=== PATIENT | female | born 1975 | race Caucasian/White ===

== ENCOUNTER 2016-07-23 12:22 | Day surgery (SDC) | payer OTHER ==
--- NOTE | ~2016-07-23 | OP ---
Record Of Operation [facility] [address] [place]. [address] NAME: MERVIN MCINTYRE : 73 STATUS : [facility]#: [id number] AGE: 41 ADM/REG DATE : 07/23/16 MR#: [id number] REPORT SERV DATE: 07/24/16 DICTATED BY: CY BECKER DATE: 07/23/16 REPORT STATUS : Draft TRANSCRIBED BY: TRACY DATE: 07/23/16 DATE OF PROCEDURE: PREPROCEDURE DIAGNOSIS: Fecal incontinence. POSTPROCEDURE DIAGNOSIS: Fecal incontinence. PROCEDURE: InterStim Percutaneous nerve stimulator. INDICATIONS: Gas, liquid, and solid stool. DESCRIPTION OF PROCEDURE: The patient was properly identified, placed in the prone position per OR protocol. General anesthesia was administered. Pillows were placed under the lower abdomen to flatten the sacrum and under the shins to allow the toes to dangle freely. The grounding pad with red lead was attached to the patient's heel on the patient's right side. The patient was prepped and draped in the usual sterile fashion using Hibiclens and ChloraPrep solution. The C-arm was draped and moved into the AP position to provide fluoroscopic mapping of the sacral region which included marking out of the midline of the sacrum, SI joints, sciatic notches, medial foraminal borders, and the sacral foramina. The C-arm was moved into the lateral position to image the sacrum. Sacral promontory to the coccyx. Local injection of a 1:1 mixture of 1% lidocaine and 0.25% Marcaine with epinephrine was administered. A 3.5 cm foramen needle was introduced approximately 2 cm above the sciatic notch and 2 cm lateral to the sacral midline filling for the foraminal margins until the S3 foramen was identified and penetrated on the right side. The depth of the needle was confirmed and adjusted fluoroscopically. Proper needle position was confirmed by a direct observation of lifting of the perineum or Palomo, and observation of plantar flexion of the great using the external test stimulator. This was also tried on the patient's right side. The best result was actually on the patient's left, so the foramen needle stylet was removed and a directional wire guide was placed confirmed fluoroscopically with the bead at the anterior plane of the sacral bone. The foramen needle was removed. An incision was made peripherally to the directional guidewire through the fascial layer. The lead introducer sheath with dilator was placed over the directional guidewire and directed into the foramen ensuring the radiopaque marker of the lead introducer, was not extended beyond the anterior edge of the sacrum. The dilator was unlocked and removed along with the directional guidewire. The lead was then placed through the introducer sheath past the first white marker, but not past the second. The position was checked fluoroscopically. The lead was then further introduced until three electrodes were visible below the sacrum. Each electrode was tested for location by and visualization of the Palomo and plantar flexion of the great toe. After satisfactory positioning was confirmed, the introducer sheath was retracted with the wire under continuous fluoro deploying the lead tines into the presacral tissue. A further incision was made into the subcu tissue posterior to the iliac crest and lateral to the sacrum. Blunt dissection was continued until the gluteal fascia was identified and hemostasis was achieved. A tunneling tool with straw was placed from the lead exit site subcutaneously to the incised pocket site. The tunneling tool was removed and the lead was fed through the straw and pulled out the pocket site. The lead was cleansed of bodily fluids, dried and a protective boot was placed over the lead. The lead Record Of [place] [id number] [facility] [place]. [address] NAME: MERVIN MCINTYRE : 73 STATUS : [facility] PAT#: [id number] AGE: 41 ADM/REG DATE : 07/23/16 MR#: [id number] REPORT SERV DATE: 07/24/16 DICTATED BY: CY BECKER DATE: 07/23/16 REPORT STATUS : Draft TRANSCRIBED BY: TRACY DATE: 07/23/16 was inserted into the temporary percutaneous extension and the metal bands were aligned. The four set screws were tightened with the hex wrench until two clicks were heard. The boot was pushed over the connection. Prolene ties were used to secure on the grooves on either side of the connection. A tunnel was made subcutaneously and exited to a puncture site above the ipsilateral buttock. The percutaneous extension was placed through the straw and exposed wand connected to the twist lock araujo cable by the Greatist. The wounds were irrigated with sterile water and antibiotic solution, closed with interrupted 3-0 Vicryl sutures, 4-0 Monocryl running subcu. Counts were correct. Mastisol, Steri-Strips, Telfa, and a Biopatch were placed over the incisions followed by Tegaderm. She tolerated the procedure well and her program will be set in recovery. The patient was transferred to PACU in satisfactory condition. OLIVA/TRACY Cy Becker M.D. / [id number] CC: Nick Patiño MD
[~2016-07-23 12:22] MED LIST: CLARIT10 PO; CYANO1000T PO; EFFEX37.5 PO; EXCEDRIN EXTRA1 EACH PO; LAMICTAL10 PO; MYCOSCROI TOP; NYSTATPOW TOP; PR25 PO; REQUIP2 PO; XANAX1 MG PO
== END 2016-07-23 21:34 | disposition home or self-care (01) ==
LOC: SDC 12:22
PROVIDERS: Surgery
PROC: BR1 Imaging, Axial Skeleton, Except Skull and Facial Bones, Fluoroscopy (ICD-10-PCS; 2016-07-23)
PROC: 01HY3MZ Insertion of Neurostimulator Lead into Peripheral Nerve, Percutaneous Approach (ICD-10-PCS; principal; 2016-07-23 15:15)
DX: R15.9 Full incontinence of feces (principal); G40.909 Epilepsy, unspecified, not intractable, without status epilepticus; F41.0 Panic disorder [episodic paroxysmal anxiety]; F41.9 Anxiety disorder, unspecified; F17.200 Nicotine dependence, unspecified, uncomplicated; Z93.2 Ileostomy status; Z90.710 Acquired absence of both cervix and uterus; Z98.890 Other specified postprocedural states; Z88.0 Allergy status to penicillin; Z88.5 Allergy status to narcotic agent; Z91.040 Latex allergy status; Z79.899 Other long term (current) drug therapy
CPT/HCPCS: 76000; 80048; 85014; 85018; A9270-GY; C1778; J0330; J1885; J2250; J2270; J2405; J2550; J2795; J3010; J3370

== ENCOUNTER 2016-07-30 04:45 | Day surgery (SDC) | payer OTHER ==
--- NOTE | ~2016-07-30 | OP ---
Record Of Operation [facility] [address] [place]. [address] NAME: MERVIN MCINTYRE : 73 STATUS : [facility]#: [id number] AGE: 41 ADM/REG DATE : 07/30/16 MR#: [id number] REPORT SERV DATE: 07/30/16 DICTATED BY: CY BECKER DATE: 07/30/16 REPORT STATUS : Draft TRANSCRIBED BY: TRACY DATE: 07/30/16 DATE OF PROCEDURE: 07/30/2016 PREPROCEDURE DIAGNOSIS: Undesired sacral nerve stimulator. POSTPROCEDURE DIAGNOSIS: Undesired sacral nerve stimulator. PROCEDURE: Removal of stage I sacral nerve stimulation test. DESCRIPTION OF PROCEDURE: The patient was taken to the operating room and positioned in the right lateral position. The dressings were removed, and the patient was prepped and draped in the usual sterile fashion. The 5 cm incision was opened after injection of local anesthetic, where the boot was located. The two stay sutures were cut from the boot, the wire was cut, and the external portion was withdrawn by the circulating nurse since it was attached to a hemostat under the drapes. Then, the midline incision was opened, palpating the wire which was grasped with a hemostat, it was held with constant pressure, easily it came out, there was no resistance and it was withdrawn. Wounds were cleaned and dried, closed with 3-0 Vicryl subcu, followed by 4-0 Monocryl subcuticular. Benzoin, Steri-Strips, two regular Band-Aids, Telfa, and an Airstrip on the 5 cm incision. She tolerated the procedure well. OLIVA/TRACY Cy Becker M.D. / [id number] CC: Nick Patiño MD
== END 2016-07-30 08:45 | disposition home or self-care (01) ==
LOC: SDC 04:45
PROVIDERS: Surgery
PROC: 0JPT0MZ Removal of Stimulator Generator from Trunk Subcutaneous Tissue and Fascia, Open Approach (ICD-10-PCS; principal; 2016-07-30 06:45)
DX: Z46.2 Encounter for fitting and adjustment of other devices related to nervous system and special senses (principal); I10 Essential (primary) hypertension; J45.909 Unspecified asthma, uncomplicated; F41.9 Anxiety disorder, unspecified; F17.200 Nicotine dependence, unspecified, uncomplicated; K21.9 Gastro-esophageal reflux disease without esophagitis; Z90.49 Acquired absence of other specified parts of digestive tract; Z90.710 Acquired absence of both cervix and uterus; Z88.0 Allergy status to penicillin; Z88.2 Allergy status to sulfonamides; Z88.5 Allergy status to narcotic agent; Z91.040 Latex allergy status; Z93.2 Ileostomy status
CPT/HCPCS: A9270-GY; J1885; J2250; J2405; J2795; J3010